=== PATIENT | female | born 1930 | race Caucasian/White ===

== ENCOUNTER 2016-11-09 09:32 | Outpatient (CLI) | payer MEDICARE, BC | END 2016-11-09 09:33 | disposition home or self-care (01) | DX: E11.9 Type 2 diabetes mellitus without complications (principal); I10 Essential (primary) hypertension; E78.5 Hyperlipidemia, unspecified; E03.9 Hypothyroidism, unspecified; N28.9 Disorder of kidney and ureter, unspecified ==

== ENCOUNTER 2017-02-02 14:45 | Outpatient (CLI) | payer MEDICARE, BC, MEDICAID | END 2017-02-02 15:00 | disposition home or self-care (01) | LOC: RT.N 14:45 | PROVIDERS: ATTEND Nurse Practitioner Gerontology | DX: Z53.9 Procedure and treatment not carried out, unspecified reason (principal) | CPT/HCPCS: 93005 ==

== ENCOUNTER 2017-03-14 10:07 | Outpatient (CLI) | payer MEDICARE, BC | END 2017-03-14 10:08 | disposition home or self-care (01) | LOC: LAB.N 10:07 | PROVIDERS: ATTEND Nurse Practitioner Gerontology | DX: R06.02 Shortness of breath (principal) | CPT/HCPCS: 36415; 83880 ==